=== PATIENT | male | born 1975 | race Two or more races ===

== ENCOUNTER 2019-04-28 13:13 | Inpatient (IN) | payer MEDICAID ==
[~2019-04-28] VITALS: Ht 172.7 cm; Wt 61.2 kg
--- NOTE | 2019-04-28 13:32 | NUR ---
BIB RA FROM [facility] C/O HEADACHE AND ABDOMINAL PAIN , BS CRITICAL HIGH IN FIELD, TO ER BED 9, HOOKED TO MONITOR AND POX, CHANGED TO HOSP GOWN, WARM BLANKET PROVIDED, PATIENT AOx 3,DR ARMSTRONG AT BEDSIDE
[2019-04-28] MEDS ORDERED: IV NS 0.9% 1,000 ML BAG IV ONE ×2 (14:00→15:00)
[2019-04-28] MEDS ORDERED: ONDANSETRON HCL/PF 4 MG/2 ML VIAL IVP ONE (14:00)
--- NOTE | 2019-04-28 14:06 | NUR ---
DR SWEET AT BEDSIDE
[2019-04-28 14:14] LABS: BASOPHILS % (AUTO) 0.5 % (0.0-2.0); EOSINOPHILS % (AUTO) 0.5 % (0.0-6.0); HEMATOCRIT 34 % (39-51); HEMOGLOBIN 11.1 g/dL (13.5-17.5); LYMPHOCYTES # (AUTO) 1.9 /CMM (0.8-4.8); LYMPHOCYTES % (AUTO) 31.9 % (20.0-44.0); MEAN CORPUSCULAR HGB CONC 33 g/dl (31.0-36.0); MEAN CORPUSCULAR VOLUME 88 fL (80-96); MONOCYTES # (AUTO) 0.4 /CMM (0.1-1.30); MONOCYTES % (AUTO) 6.7 % (2.0-12.0); NEUTROPHILS # (AUTO) 3.7 /CMM (1.8-8.9); NEUTROPHILS % (AUTO) 60.4 % (43.0-81.0); PLATELET COUNT (AUTO) 362 /CMM (150-450); RED BLOOD CELL COUNT(AUTO) 3.84 MIL/uL (4.5-6.0); WHITE BLOOD COUNT (AUTO) 6.1 K/uL (4.3-11.0)
[2019-04-28 14:36] LABS: ALBUMIN 2.7 g/dL (3.4-5.0); BILIRUBIN,DIRECT 0.1 mg/dL (0.0-0.2); BILIRUBIN,TOTAL 0.7 mg/dL (0.2-1.0); CALCIUM, SERUM 8.3 mg/dL (8.5-10.1); CREATININE 1.3 mg/dL (0.6-1.3); POTASSIUM 4.4 mmol/L (3.5-5.1); TOTAL PROTEIN, SERUM 6.8 g/dL (6.4-8.2)
[2019-04-28] MEDS ORDERED: ONDANSETRON HCL/PF 4 MG/2 ML VIAL ONE (14:55)
[2019-04-28] MEDS ORDERED: IV PREMIX 0.45% NS + KCL 1,000 ML IV ONE (16:37)
--- NOTE | 2019-04-28 16:45 | NUR ---
PER NURSING SUP NO ICU AVAILABLE
[2019-04-28] MEDS ORDERED: INSULIN REGULAR, HUMAN 100 UNIT in IV NS 0.9% 99 ML IV PRN ×2 (17:00)
[2019-04-28 17:08] LABS: APPEARANCE,URINE Clear (CLEAR); BILIRUBIN,URINE Negative (NEGATIVE); BLOOD, URINE Trace-intact Ery/uL (NEGATIVE); COLOR,URINE Yellow (YELLOW); KETONES,URINE 80 (NEGATIVE); LEUKOCYTE ESTERASE ,URINE Negative (NEGATIVE); NITRITE, URINE Negative (NEGATIVE); PH,URINE 5.5 (5.0-8.0); PROTEIN,URINE Negative (NEGATIVE); UGLUCOSE >=1000 mg/dL (NEGATIVE); UROBILINOGEN,URINE 0.2 EU/dL (0.2)
--- NOTE | 2019-04-28 17:20 | NUR ---
US TECH AT BEDSIDE
[2019-04-28 17:21] LABS: CALCIUM, SERUM 7.8 mg/dL (8.5-10.1); CREATININE 1.2 mg/dL (0.6-1.3); MAGNESIUM 1.7 mg/dL (1.8-2.4); POTASSIUM 4.7 mmol/L (3.5-5.1)
[2019-04-28 17:24] LABS: RBC,URINE 0-2 /HPF (0-2)
[2019-04-28 17:25] LABS: BACTERIA,URINE Few /HPF (None Seen); SQUAMOUS EPITHELIAL CELL,UR Few /HPF (None Seen); WBC,URINE 0-2 /HPF (0-3)
--- NOTE | 2019-04-28 18:25 | NUR ---
AIDEN LUJAN AT BEDSIDE
--- NOTE | 2019-04-28 19:23 | NUR ---
DR SWEET ORDERED TO INCREASE INSULIN DRIP TO 6U/HR, CARRIED OUT
--- NOTE | 2019-04-28 19:26 | NUR ---
REPORT GIVEN TO ANA ESPANA FOR DIONNA
[2019-04-28] MEDS ORDERED: ACETAMINOPHEN 325 MG TABLET PO PRN (19:30)
[2019-04-28] MEDS ORDERED: Z GUARD REMEDY 2 OZ OINT TP PRN (19:30)
[2019-04-28] MEDS ORDERED: ZOLPIDEM TARTRATE 5 MG TABLET PO PRN (19:30)
[2019-04-28] MEDS ORDERED: MAG HYDROX/AL HYDROX/SIMETH 30 ML UDC PO PRN (19:30)
[2019-04-28] MEDS ORDERED: ONDANSETRON HCL/PF 4 MG/2 ML VIAL IVP PRN (19:30)
[2019-04-28] MEDS ORDERED: HYDROCODONE/APAP 5/325MG 1 EACH TABLET PO PRN (19:30)
--- NOTE | 2019-04-28 20:25 | NUR ---
REPORT GIVEN TO ED RN FOR DIONNA.
[2019-04-28 21:05] VITALS: BP 112/67
[2019-04-28] MEDS: Magnesium 1GM/D5W 100ML PREMIX 100 ML IV SCH ×2 (21:15→22:02)
[2019-04-28] MEDS: INSULIN REGULAR, HUMAN 100 UNIT in IV NS 0.9% 99 ML IV PRN ×2 (21:17)
[2019-04-28] MEDS: BLOOD SUGAR DIAGNOSTIC 1 EACH STRIP IN SCH ×3 (21:59→23:57)
[2019-04-28 22:30] LABS: CALCIUM, SERUM 7.2 mg/dL (8.5-10.1); POTASSIUM 5.6 mmol/L (3.5-5.1)
[2019-04-28] MEDS ORDERED: INSULIN REGULAR, HUMAN 100 UNIT/ML 3 ML VIAL ONE (22:49)
[2019-04-28] MEDS: IV NS 0.9% 1,000 ML IV PRN (23:25)
[2019-04-29] VITALS (10 sets, daily range): BP systolic 84–128; BP diastolic 55–83
[2019-04-29] MEDS: BLOOD SUGAR DIAGNOSTIC 1 EACH STRIP IN SCH ×7 (01:01→06:52)
[2019-04-29] MEDS: IV NS 0.9% 1,000 ML IV PRN (04:14)
[2019-04-29 04:31] LABS: BASOPHILS % (AUTO) 0.6 % (0.0-2.0); EOSINOPHILS % (AUTO) 1.8 % (0.0-6.0); HEMATOCRIT 30 % (39-51); HEMOGLOBIN 9.8 g/dL (13.5-17.5); LYMPHOCYTES # (AUTO) 2.5 /CMM (0.8-4.8); LYMPHOCYTES % (AUTO) 61.8 % (20.0-44.0); MEAN CORPUSCULAR HGB CONC 33 g/dl (31.0-36.0); MEAN CORPUSCULAR VOLUME 87 fL (80-96); MONOCYTES # (AUTO) 0.3 /CMM (0.1-1.30); MONOCYTES % (AUTO) 6.5 % (2.0-12.0); NEUTROPHILS # (AUTO) 1.2 /CMM (1.8-8.9); NEUTROPHILS % (AUTO) 29.3 % (43.0-81.0); PLATELET COUNT (AUTO) 305 /CMM (150-450); WHITE BLOOD COUNT (AUTO) 4.1 K/uL (4.3-11.0)
[2019-04-29 04:43] LABS: CALCIUM, SERUM 7.6 mg/dL (8.5-10.1); MAGNESIUM 1.9 mg/dL (1.8-2.4); PHOSPHORUS 2.9 mg/dL (2.5-4.9)
--- NOTE | 2019-04-29 05:00 | NUR ---
MONITORING ANALYST PT WAS ADMITTED FROM ER WITH DIAGNOSIS DKA. ON ADMISSION BS >600. STARTED INSULIN DRIP WITH SLIDING SCALE CALCULATED BY FORMULA BSX2:100. PT IS AWAKE, ALERT, ORIENTED. MOVES ALL EXTREMITIES, SPEECH IS CLEAR. MARNI. DENIES PAIN, SOB OR ANY OTHER DISCOMFORT. VSS, AFEBRILE, SCOPE-SR WITH BBB. NS IV BOLUS 2000 ML GIVEN IN ER. MAIN IV NS @ 200 MLS/HR. LUNGS CLEAR. PT IS ON ROOM AIR, TOLERATES WELL. PT HAS TWO IV ACCESS RIGHT WRIST #20, AND LEFT AC #20. VOIDS SUFFICIENT AMT. OF CLEAR YELLOW URINE. REMAINS NPO. WILL CONTINUE CLOSE MONITORING.
[2019-04-29] MEDS: INSULIN REGULAR, HUMAN 100 UNIT in IV NS 0.9% 99 ML IV PRN ×2 (05:05)
--- NOTE | 2019-04-29 06:00 | NUR ---
DEVELOPMENT TRAINER PT PULLED OUT HIS IV LINE ON LEFT AC BY CHANCE & REFUSED TO START A NEW LINE. SO MAIN IV & INSULIN DRIP RUN ON RIGHT WRIST FROM NOW. A.M. SCOP-SB WITH BBB WITH HR 50'S. ACCU CHEK BS IS 148. AM. LABS: WBC-4.1, NA 139, K 4, ANION GAP 14.
[2019-04-29] MEDS ORDERED: DEXTROSE 50%-WATER 50 ML DISP.SYRIN IV PRN ×2 (07:30→12:00)
[2019-04-29] MEDS ORDERED: BLOOD SUGAR DIAGNOSTIC 1 EACH STRIP IN SCH (07:30)
[2019-04-29] MEDS ORDERED: INSULIN REGULAR, HUMAN 100 UNIT/ML 3 ML VIAL SQ PRN (07:30)
--- NOTE | 2019-04-29 07:50 | NUR ---
MANAGER COLLEGE PT WAS DOWNGRADED TO MED.SURG. STATUS. INSULIN DRIP D/C. PT IS AWAKE, ALERT, ORIENTED x 3. PLEASANT & COOPERATIVE. PT WAS FED. URINE OUTPUT IS ADEQUATE. VSS, AFEBRILE. REMAINS ON RA. WAITING FOR MED.SURG BED AVAILABLE TO MOVE THE PT.
--- NOTE | 2019-04-29 08:24 | NUR ---
SUPERVISOR ROUGH END REPORT GIVEN TO MERCY POLLOCK RN. PT WAS TRANSFERRED TO ROOM 312-1.
--- NOTE | 2019-04-29 09:25 | NUR ---
MS RN NOTES DID ACUCHECK. BS 450. NOTIFIED. INSULIN ADMINISTERED PER PROTOCOL.WILL CONTINUE TO MONITOR PATIENT.
[2019-04-29] MEDS: BLOOD SUGAR DIAGNOSTIC 1 EACH STRIP VI SCH ×3 (12:11→21:12)
[2019-04-29] MEDS: *INSULIN REGULAR(HUMULIN R)HUM 100 UNIT/ML VIAL SQ PRN ×2 (13:02→21:24)
--- NOTE | 2019-04-29 13:41 | NUR ---
Social service consult requested by MD for homelessness. Per chart review and MD notes, pt is a 43-year-old Male with a history of diabetes not compliant with medication, brought in by ambulance from the street for evaluation of dizziness for two weeks. He endorses a history of diabetes for two years, for which he took pills, but is not currently compliant with his medication. SECTION HOUSEKEEPER met with the pt bedside. Pt is Maldivian speaking. mortgage closing clerk Ally assisted in translation. Pt reports to be homeless. Pt states prior to two weeks he was staying at the [facility] in [facility]. Pt appears disheveled and unkempt. Pt had some belongings bedside. Pt reports to have no family. Pt has no source of income and goes to food [employer] to get food or [employer] handles for money. Pt denies any psychiatric diagnoses or history. Pt. denies suicidal/homicidal ideations and Visual/auditory hallucinations at this time. Pt denies alcohol/drug use. Pt reports to smoking up to 7 cigarettes per day. Pt is interested in winter long term placement and homeless resources. SECTION HOUSEKEEPER to meet with pt prior to discharge and give him the needed homeless resources. Homeless patient waiver form to be signed by the pt upon discharge. SECTION HOUSEKEEPER provided pt with active listening and supportive counseling. No other social service needs are requested at this time. SECTION HOUSEKEEPER is available, if needed.
--- NOTE | 2019-04-29 17:22 | NUR ---
MS RN NOTES BS AT 1700 OF 83. PER PROTOCOL NO COVERAGE ADMINISTERED.
--- NOTE | 2019-04-29 18:49 | NUR ---
MS RN CLOSING NOTES PATIENT IN BED AT THIS TIME AND ASLEEP. BREATHING EVENLY AND WITH NO S/S OF SOB AT THIS TIME. NO COMPLAINS OF PAIN. R WRIST HL # 20 INTACT AND FLUSHING WELL. SAFETY PRECAUTIONS IN PLACE: BED IN LOW POSITION AND LOCKED, RAILS UP X2, CALL LIGHT WITHIN REACH. WILL ENDORSE TO TEACHING ARTIST NURSE.
--- NOTE | 2019-04-29 19:50 | NUR ---
RN OPENING NOTES RECEIVED REPORT FROM DAYSMNFT Maya MCKEON FOUND Pt ASLEEP IN BED, RESPIRATIONS EVEN AND UNLABORED WITH EQUAL CHEST RISE AND FALL. EASILY AWAKENED BY NAME. Pt IS A/OX3, VERBAL, ABLE TO MAKE NEEDS KNOWN. IV ACCESS ON RWRIST #20G, SL. SAFETY MEASURES IN PLACE. BED LOW, LOCKED, HOB ELEVATED, SIDE RAILS UP, CALL LIGHT AND BEDSIDE TABLE WITHIN REACH. BED ALARM ON. WILL CONTINUE TO MONITOR Pt's CONDITION AND SAFETY THROUGHOUT THE NIGHT.
[2019-04-29] MEDS ORDERED: INSULIN GLARGINE, 100 UNIT/ML CARTRIDGE SQ SCH (22:00)
--- NOTE | 2019-04-29 22:00 | NUR ---
RN NOTES HS ACCUCHECK BG 341. ADMINISTERED SCHEDULED 12UN OF LANTUS & GAVE AN ADDITIONAL COVERAGE OF 8UN REGULAR INSULIN PER SLIDING SCALE. SANDWICH & MILK PROVIDED AFTER GIVING INSULIN PER Pt's REQUEST.
[2019-04-30 06:19] LABS: BASOPHILS % (AUTO) 0.5 % (0.0-2.0); EOSINOPHILS % (AUTO) 1.4 % (0.0-6.0); HEMATOCRIT 30 % (39-51); HEMOGLOBIN 10.1 g/dL (13.5-17.5); LYMPHOCYTES % (AUTO) 56.6 % (20.0-44.0); MEAN CORPUSCULAR HGB CONC 34 g/dl (31.0-36.0); MEAN CORPUSCULAR VOLUME 85 fL (80-96); MONOCYTES # (AUTO) 0.2 /CMM (0.1-1.30); MONOCYTES % (AUTO) 5.7 % (2.0-12.0); NEUTROPHILS # (AUTO) 1.3 /CMM (1.8-8.9); NEUTROPHILS % (AUTO) 35.8 % (43.0-81.0); PLATELET COUNT (AUTO) 305 /CMM (150-450); RED BLOOD CELL COUNT(AUTO) 3.52 MIL/uL (4.5-6.0); WHITE BLOOD COUNT (AUTO) 3.5 K/uL (4.3-11.0)
[2019-04-30 06:35] LABS: CALCIUM, SERUM 7.9 mg/dL (8.5-10.1); CREATININE 0.8 mg/dL (0.6-1.3); MAGNESIUM 1.6 mg/dL (1.8-2.4); PHOSPHORUS 2.7 mg/dL (2.5-4.9); POTASSIUM 3.4 mmol/L (3.5-5.1)
[2019-04-30] MEDS: BLOOD SUGAR DIAGNOSTIC 1 EACH STRIP VI SCH ×2 (07:06→11:30)
[2019-04-30] MEDS: INSULIN REGULAR, HUMAN 100 UNIT/ML 3 ML VIAL SQ PRN ×2 (07:08→11:30)
--- NOTE | 2019-04-30 07:09 | NUR ---
rn notes ac accucheck bg 230. administered 6un of insulin per sliding scale
[2019-04-30 08:00] VITALS: BP_SYST 100; BP_SYST 106; BP_DIAS 54
--- NOTE | 2019-04-30 08:29 | NUR ---
RN CLOSING NOTES NO SIGNIFICANT CHANGES IN Pt's CONDITION. Pt IS RESTING COMFORTABLY IN BED. NO S/S OF ACUTE DISTRESS OR SOB NOTED. ALL NEEDS MET AND ATTENDED TO. SAFETY MEASURES IN PLACE. ENDORSED TO DAYSHIFT RN FOR Pt's DIONNA.
[2019-04-30] MEDS ORDERED: POTASSIUM CHLORIDE 20 MEQ TAB.PRT.SR PO SCH (10:30)
[2019-04-30] MEDS ORDERED: Magnesium 1GM/D5W 100ML PREMIX 100 ML IV SCH (11:30)
--- NOTE | 2019-04-30 14:45 | NUR ---
Patient cleared for d/c and decided to go to senior living. Patient awake , alert and oriented x3 , Nepalese speaking only. Breathing unlabored and even on room air, denies pain, VS are stable and within base line. All needs attended prior discharge, food provided prior d/c. No skin issues.IV lines removed , ID wrist band removed. Patient received d/c instruction and education. All instructions provided ( in Nepalese also). Patient verbalized understanding and will f/u with CP in free clinic.Resources provided. Patient received a TAP card. Homeless waiver form signed , D/C instructions sighed and Valuable form sighed. All belongings with the patient. Patient transferred to [facility] via wheelchair accompanied ROD STRAIGHTENER.
[2019-04-30] MEDS ORDERED: INSU100I34 SQ (14:53)
[2019-04-30] MEDS ORDERED: INSU100I30 SQ (14:53)
== END 2019-04-30 14:45 | disposition home or self-care (01) | DRG 420 ==
LOC: ER 13:18 → ICU 20:41 → MED 04-29 08:07
PROVIDERS: ADMIT Nurse Practitioner Acute Care; ATTEND Nurse Practitioner Acute Care
DX: E11.10 Type 2 diabetes mellitus with ketoacidosis without coma (principal); G93.41 Metabolic encephalopathy; E44.0 Moderate protein-calorie malnutrition; E87.1 Hypo-osmolality and hyponatremia; Z90.49 Acquired absence of other specified parts of digestive tract; Z91.19 Patient's noncompliance with other medical treatment and regimen; Z91.14 Patient's other noncompliance with medication regimen; Z59.0 Homelessness; F17.290 Nicotine dependence, other tobacco product, uncomplicated; D63.8 Anemia in other chronic diseases classified elsewhere; E11.65 Type 2 diabetes mellitus with hyperglycemia; K70.30 Alcoholic cirrhosis of liver without ascites
CPT/HCPCS: 36415; 70450-TC; 76705-TC; 80048-TC; 80061-TC; 80076-TC; 81000-TC; 82962-TC; 83690-TC; 83735-TC; 84100-TC; 85025-TC; 87081-TC; G0378; J1815; J2405; J3475; J7030